=== PATIENT | male | born 1985 | race Caucasian/White ===

== ENCOUNTER 2016-08-11 19:39 | Emergency (ER) | payer MEDICARE ==
[2016-08-11 20:56] LABS: BASOPHIL 0.2 % (0-2); HGB 15.5 g/dl (13.2-18.0); LYMPHOCYTE 28.7 % (15-48); MCH 28.3 pg (25.0-31.0); MCHC 34.4 g/dL (32.0-36.0); MCV 82.3 fL (78.0-100.0); MONOCYTE 7.5 % (0-12); MPV 10.5 fL (6.0-9.5); NEUTROPHIL 62.6 % (41-80); PLT 298 K/uL (150-400); RBC 5.47 M/uL (4.70-6.00); RDW 13.1 % (11.5-14.0); WBC 10.1 K/uL (4.0-10.5)
[2016-08-11 20:58] LABS: BILIRUBIN NEGATIVE (NEGATIVE); BLOOD NEGATIVE Ery/uL (NEGATIVE); CLARITY SLIGHTLY HAZY (CLEAR); COLOR YELLOW (YELLOW); GLUCOSE (U) NORMAL (NORMAL); KETONE (U) NEGATIVE (NEGATIVE); LEUKOCYTES NEGATIVE Leu/uL (NEGATIVE); NITRITE NEGATIVE (NEGATIVE); PROTEIN NEGATIVE (NEGATIVE); UROBILINOGEN 0.2 mg/dL (0.2-1.0); pH 5.5 (5.0-9.0)
[2016-08-11 21:05] LABS: INR 1.07 (0.9-1.2); PROTHROMBIN TIME 13.5 SECONDS (11.7-14.0); PTT 28.1 SECONDS (23.2-31.4)
[2016-08-11 21:07] LABS: BENZODIAZEPINES NEGATIVE (NEGATIVE)
[2016-08-11 21:08] LABS: AMPHETAMINES POSITIVE (NEGATIVE); BARBITURATES NEGATIVE (NEGATIVE); COCAINE NEGATIVE (NEGATIVE); MARIJUANA (THC) POSITIVE (NEGATIVE); METHADONE NEGATIVE (NEGATIVE); TRICYCLIC ANTIDEPRESSANT NEGATIVE (NEGATIVE)
[2016-08-11 21:14] LABS: CREATININE 0.8 mg/dL (0.7-1.2); POTASSIUM 3.8 mmol/L (3.5-5.1); SALICYLATE 16 ug/mL (0-300)
[2016-08-11 21:15] LABS: ACETAMINOPHEN (TYLENOL) < 5.0 ug/mL (10.0-30.0); ALCOHOL (ETOH) MEDICAL 165 mg/dL
== END 2016-08-12 04:53 | disposition other institution (70) ==
LOC: FER 19:39
PROVIDERS: Internal Medicine
DX: R45.851 Suicidal ideations (principal); F15.10 Other stimulant abuse, uncomplicated; F12.10 Cannabis abuse, uncomplicated; F31.9 Bipolar disorder, unspecified; F17.200 Nicotine dependence, unspecified, uncomplicated; Z91.5 Personal history of self-harm; Z86.19 Personal history of other infectious and parasitic diseases
CPT/HCPCS: 36415; 80048; 80305; 81003; 83690; 84484; 85025; 85610; 85730; G0480

== ENCOUNTER 2016-10-02 03:20 | Emergency (ER) | payer MEDICARE ==
[2016-10-02 03:59] LABS: BASOPHIL 0.4 % (0-2); EOSINOPHIL 1.1 % (0-5); HCT 46.3 % (42.0-52.0); HGB 16.1 g/dl (13.2-18.0); LYMPHOCYTE 31.2 % (15-48); MCH 30.3 pg (25.0-31.0); MCHC 34.8 g/dL (32.0-36.0); MCV 87.2 fL (78.0-100.0); MONOCYTE 6.9 % (0-12); MPV 10.8 fL (6.0-9.5); NEUTROPHIL 60.4 % (41-80); PLT 273 K/uL (150-400); RBC 5.31 M/uL (4.70-6.00); RDW 15.9 % (11.5-14.0); WBC 14.2 K/uL (4.0-10.5)
[2016-10-02 04:01] LABS: BILIRUBIN NEGATIVE (NEGATIVE); BLOOD NEGATIVE Ery/uL (NEGATIVE); CLARITY CLEAR (CLEAR); COLOR STRAW (YELLOW); GLUCOSE (U) NORMAL (NORMAL); KETONE (U) NEGATIVE (NEGATIVE); LEUKOCYTES NEGATIVE Leu/uL (NEGATIVE); NITRITE NEGATIVE (NEGATIVE); PROTEIN NEGATIVE (NEGATIVE); SPECIFIC GRAVITY <=1.005 (1.001-1.030); UROBILINOGEN 0.2 mg/dL (0.2-1.0); pH 5.5 (5.0-9.0)
[2016-10-02 04:13] LABS: AMPHETAMINES NEGATIVE (NEGATIVE); BENZODIAZEPINES NEGATIVE (NEGATIVE); COCAINE NEGATIVE (NEGATIVE)
[2016-10-02 04:14] LABS: BARBITURATES NEGATIVE (NEGATIVE); MARIJUANA (THC) POSITIVE (NEGATIVE); METHADONE NEGATIVE (NEGATIVE); TRICYCLIC ANTIDEPRESSANT NEGATIVE (NEGATIVE)
[2016-10-02 04:15] LABS: ACETAMINOPHEN (TYLENOL) < 5.0 ug/mL (10.0-30.0); SALICYLATE < 6 ug/mL (0-300)
[2016-10-02 04:16] LABS: ALBUMIN 4.3 g/dL (3.5-5.0); ALCOHOL (ETOH) MEDICAL 190 mg/dL; BILIRUBIN - TOTAL 0.3 mg/dL (0.1-1.0); CREATININE 0.7 mg/dL (0.7-1.2); GLOBULIN (CALCULATION) 2.9 g/dL (2.2-4.2); TOTAL PROTEIN 7.2 g/dL (6.4-8.3)
== END 2016-10-02 04:12 | disposition left against medical advice (07) ==
LOC: FER 03:20
PROVIDERS: Emergency Medicine Emergency Medical Services
DX: F32.9 Major depressive disorder, single episode, unspecified (principal); F11.10 Opioid abuse, uncomplicated; F10.10 Alcohol abuse, uncomplicated; E86.9 Volume depletion, unspecified; M25.559 Pain in unspecified hip; G89.29 Other chronic pain; Y90.6 Blood alcohol level of 120-199 mg/100 ml
CPT/HCPCS: 36415; 80053; 80305; 81003; 85025; G0480; J1885

== ENCOUNTER 2016-10-17 00:37 | Emergency (ER) | payer MEDICARE ==
[2016-10-17 01:16] LABS: BILIRUBIN NEGATIVE (NEGATIVE); BLOOD NEGATIVE Ery/uL (NEGATIVE); CLARITY CLEAR (CLEAR); COLOR YELLOW (YELLOW); GLUCOSE (U) NORMAL (NORMAL); KETONE (U) NEGATIVE (NEGATIVE); LEUKOCYTES NEGATIVE Leu/uL (NEGATIVE); NITRITE NEGATIVE (NEGATIVE); PROTEIN NEGATIVE (NEGATIVE); SPECIFIC GRAVITY <=1.005 (1.001-1.030); UROBILINOGEN 0.2 mg/dL (0.2-1.0)
[2016-10-17 01:24] LABS: BENZODIAZEPINES NEGATIVE (NEGATIVE)
[2016-10-17 01:25] LABS: AMPHETAMINES NEGATIVE (NEGATIVE); BARBITURATES NEGATIVE (NEGATIVE); COCAINE NEGATIVE (NEGATIVE); MARIJUANA (THC) POSITIVE (NEGATIVE); METHADONE NEGATIVE (NEGATIVE); TRICYCLIC ANTIDEPRESSANT NEGATIVE (NEGATIVE)
[2016-10-17 01:44] LABS: BASOPHIL 0.4 % (0-2); EOSINOPHIL 1.6 % (0-5); HCT 49.4 % (42.0-52.0); HGB 17.1 g/dl (13.2-18.0); LYMPHOCYTE 32.6 % (15-48); MCH 29.7 pg (25.0-31.0); MCHC 34.6 g/dL (32.0-36.0); MCV 85.8 fL (78.0-100.0); MONOCYTE 7.5 % (0-12); MPV 11.1 fL (6.0-9.5); NEUTROPHIL 57.9 % (41-80); PLT 258 K/uL (150-400); RBC 5.76 M/uL (4.70-6.00); WBC 12.2 K/uL (4.0-10.5)
[2016-10-17 01:49] LABS: ALBUMIN 4.5 g/dL (3.5-5.0); BILIRUBIN - TOTAL 0.4 mg/dL (0.1-1.0); CREATININE 1.2 mg/dL (0.7-1.2); GLOBULIN (CALCULATION) 2.8 g/dL (2.2-4.2); POTASSIUM 3.5 mmol/L (3.5-5.1); TOTAL PROTEIN 7.3 g/dL (6.4-8.3)
[2016-10-17 01:50] LABS: ACETAMINOPHEN (TYLENOL) < 5.0 ug/mL (10.0-30.0); ALCOHOL (ETOH) MEDICAL 141 mg/dL; SALICYLATE < 6 ug/mL (0-300)
== END 2016-10-17 02:00 | disposition left against medical advice (07) ==
LOC: FER 00:37
PROVIDERS: Emergency Medicine Emergency Medical Services
DX: F15.20 Other stimulant dependence, uncomplicated (principal); F12.20 Cannabis dependence, uncomplicated; F32.9 Major depressive disorder, single episode, unspecified; F17.210 Nicotine dependence, cigarettes, uncomplicated
CPT/HCPCS: 36415; 80053; 80305; 81003; 85025; 99284; G0480; J1100; J1885

== ENCOUNTER 2020-10-24 05:28 | Emergency (ER) | payer OTHER | END 2020-10-24 08:20 | disposition home or self-care (01) | LOC: FER 05:28 | DX: M25.511 Pain in right shoulder (principal); F17.210 Nicotine dependence, cigarettes, uncomplicated; V19.60XA Unspecified pedal cyclist injured in collision with unspecified motor vehicles in traffic accident, initial encounter; Y93.55 Activity, bike riding | CPT/HCPCS: 73030 ==